=== PATIENT | male | born 1965 | race Caucasian/White ===

== ENCOUNTER 2024-10-02 10:03 | Inpatient (IN) | payer OTHER ==
[2024-10-02 10:36] VITALS: BMI 34.5
[2024-10-02] MEDS ORDERED: POLYETHYLENE GLYCOL (HEALTHYLAX) 3350 17 GM PACKET PO PRN (10:45)
[2024-10-02] MEDS ORDERED: IBUPROFEN 600 MG TABLET (FP) PO PRN (10:45)
[2024-10-02] MEDS ORDERED: MAG HYDROX/AL HYDROX/SIMETH 30 ML UNIT-DOSE CUP PO PRN (10:45)
[2024-10-02] MEDS ORDERED: hydrOXYzine PAMOATE 25 MG CAPSULE (FP) PO PRN (10:45)
[2024-10-02] MEDS ORDERED: guaiFENesin 600 MG TABLET.ER (FP) PO PRN (10:45)
[2024-10-02] MEDS ORDERED: BENZONATATE 200 MG CAPSULE PO PRN (10:45)
[2024-10-02] MEDS ORDERED: NICOTINE POLACRILEX 2 MG GUM BUC PRN (10:45)
[2024-10-02] MEDS ORDERED: ONDANSETRON *ODT* 4 MG TABLET SL PRN (10:45)
[2024-10-02] MEDS ORDERED: BISMUTH SUBSALICYLATE 262 MG/15 ML BTL PO PRN (10:45)
[2024-10-02] MEDS ORDERED: ACETAMINOPHEN 325 MG TABLET (FP) PO PRN (10:45)
[2024-10-02] MEDS ORDERED: LOPERAMIDE HCL 2 MG CAPSULE PO PRN (10:45)
[2024-10-02] MEDS ORDERED: IBUPROFEN 400 MG TABLET (FP) PO PRN (10:45)
[2024-10-02] MEDS ORDERED: NICOTINE POLACRILEX 2 MG LOZENGE BC PRN (10:45)
[2024-10-02] MEDS ORDERED: MAGNESIUM HYDROX 2400MG/30ML ORAL SUSPENSION 30 ML CUP PO PRN (10:45)
[2024-10-02] MEDS ORDERED: DICYCLOMINE HCL 10 MG CAPSULE PO PRN (10:45)
[2024-10-02] MEDS ORDERED: BENZOCAINE/MENTHOL (CHLORASEPTIC ) LOZENGE MM PRN (10:45)
[2024-10-02] MEDS ORDERED: amLODIPine BESYLATE 5 MG TABLET (FP) ONE (11:17)
[2024-10-02] MEDS: amLODIPine BESYLATE 10 MG TABLET (FP) PO SCH (11:18)
[2024-10-02] MEDS: NALTREXONE HCL 50 MG TABLET PO ONE (17:28)
[2024-10-02] MEDS: MELATONIN 5 MG TABLETS PO SCH (22:04)
[2024-10-02] MEDS: THIAMINE 100 MG TABLET PO SCH (22:04)
[2024-10-03] MEDS ORDERED: chlordiazePOXIDE HCL 25 MG CAPSULE PO PRN (08:30)
[2024-10-03] MEDS: NICOTINE 14 MG/24 HOURS TOPICAL PATCH TD SCH (10:19)
[2024-10-03] MEDS: PRENATAL VITAMINS W/ FOLIC ACID TABLET (FP) PO SCH (10:21)
[2024-10-03] MEDS: chlordiazePOXIDE HCL 25 MG CAPSULE PO SCH (10:21)
[2024-10-03] MEDS: NALTREXONE HCL 50 MG TABLET PO SCH (10:21)
[2024-10-03] MEDS ORDERED: LOSARTAN POTASSIUM 50 MG TABLET PO SCH (12:00)
[2024-10-03 12:05] LABS: HEMATOCRIT 47.5 % (35.4-49); HEMOGLOBIN 16.2 GM/dL (11.7-16.9); MCH 32.6 pg (25.7-33.7); MCHC 34.1 g/dl (32.0-35.9); MEAN CELL VOLUME 95.6 fl (80-96); MEAN PLT VOLUME 9.2 fl (7.5-11.1); PLATELET COUNT 257 10^3/uL (134-434); RBC 4.97 M/mm3 (4.00-5.60); RDW 13.4 % (11.9-15.9); WHITE BLOOD COUNT 7.1 K/mm3 (4.0-10.0)
[2024-10-03 13:04] LABS: POTASSIUM 3.9 mmol/L (3.5-5.1)
[2024-10-03 13:13] LABS: CALCIUM 9.3 mg/dL (8.5-10.1)
[2024-10-03 13:14] LABS: ALBUMIN 3.8 g/dl (3.4-5.0)
[2024-10-03 13:16] LABS: CREATININE 0.9 mg/dL (0.55-1.3)
[2024-10-03 13:18] LABS: BILIRUBIN,TOTAL 0.7 mg/dL (0.2-1); TOT PROT 7.3 g/dl (6.4-8.2)
[2024-10-03 13:25] LABS: BLOOD UREA NITROGEN 10.3 mg/dL (7-18)
[2024-10-03] MEDS: METHOCARBAMOL 500 MG TABLET PO PRN (22:45)
[2024-10-04] MEDS: chlordiazePOXIDE HCL 10 MG CAPSULE PO SCH (05:58)
[2024-10-05] MEDS ORDERED: chlordiazePOXIDE HCL 10 MG CAPSULE PO PRN
[2024-10-05] MEDS: chlordiazePOXIDE HCL 10 MG CAPSULE PO SCH (05:38)
[2024-10-06] MEDS: chlordiazePOXIDE HCL 10 MG CAPSULE PO ONE (06:00)
[2024-10-06 09:31] VITALS: RESP 18; TEMP 96.7
[2024-10-06 10:10] VITALS: BP 145/86; PULSE 92
[2024-10-06] MEDS: NALOXONE (NARCAN) HCL 4 MG/0.1 ML SPRAY NS PRN (12:42)
== END 2024-10-06 10:25 | disposition home or self-care (01) | DRG 774 ==
LOC: YASAS 10:03 → Y6N 11:32
PROVIDERS: ADMIT Allergy & Immunology; ATTEND Surgery
PROC: HZ2ZZZZ Detoxification Services for Substance Abuse Treatment (ICD-10-PCS; principal; 2024-10-02)
DX: F10.230 Alcohol dependence with withdrawal, uncomplicated (principal); F14.20 Cocaine dependence, uncomplicated; F17.213 Nicotine dependence, cigarettes, with withdrawal; F41.9 Anxiety disorder, unspecified; I10 Essential (primary) hypertension; Z59.00 Homelessness unspecified
CPT/HCPCS: 36415; 80053; 80307; 85027; 86780; 93005; 93010

== ENCOUNTER 2025-04-28 12:02 | Emergency (ER) | payer OTHER ==
[2025-04-28 12:15] VITALS: PULSE 71; RESP 18; TEMP 98; BMI 36.2
[2025-04-28] MEDS ORDERED: amLODIPine BESYLATE 10 MG TABLET (FP) ONE (13:31)
[2025-04-28 13:36] VITALS: BP 179/106
[2025-04-28] MEDS: amLODIPine BESYLATE 10 MG TABLET (FP) PO ONE (13:36)
== END 2025-04-28 13:50 | disposition home or self-care (01) ==
LOC: JER 12:02
DX: I10 Essential (primary) hypertension (principal)
CPT/HCPCS: 99283-25